=== PATIENT | female | born 1965 | race Hispanic/Latino ===

== ENCOUNTER 2018-01-28 06:25 | Day surgery (SDC) | payer OTHER ==
[2018-01-28] MEDS ORDERED: Ringers Lactate 1,000 ML IV ONE (06:44)
[2018-01-28] MEDS ORDERED: LIDOCAINE 1% W/EPI 1:100,000 MDV 50 ML VIAL ONE (07:21)
[2018-01-28] MEDS ORDERED: PROPOFOL 200 MG/20 ML VIAL IV ONE (07:21)
[2018-01-28] MEDS ORDERED: FENTANYL CITR 100 MCG/2 ML ONE ×2 (07:21→08:32)
[2018-01-28] MEDS ORDERED: TOBRADEX 0.3-0.1% OPTH OINTMENT ONE (07:21)
[2018-01-28] MEDS ORDERED: POVIDONE-IODINE 5% EYE DROPS ONE (07:21)
[2018-01-28] MEDS ORDERED: MIDAZOLAM HCL 2 MG/2 ML INJ ONE (07:21)
[2018-01-28] MEDS ORDERED: ONDANSETRON HCL 40 MG/20 ML VIAL ONE (07:22)
[2018-01-28] MEDS ORDERED: OPTHALMIC OPTH ONE (07:57)
[2018-01-28] MEDS ORDERED: MITOMYCIN OPTH ONE (07:57)
[2018-01-28] MEDS ORDERED: TISSEEL VH 2 MG KIT TOP ONE (07:57)
[2018-01-28] MEDS ORDERED: BSS OPTHALMIC SOL 15 ML BOT OPTH ONE (09:08)
[2018-01-28] MEDS: MORPHINE 4 MG/ML SYR ONE ×3 (09:54→10:01)
[2018-01-28] MEDS ORDERED: HYDROCODONE/APAP 5/325 MG TAB ONE (10:49)
--- NOTE | 2018-01-28 21:28 | OP ---
Date of Procedure: 01/28/2018 Surgeon: Chadwick Vivar MD [employer] Coordinator: None. Preoperative Diagnosis: Pterygium, right eye. Postoperative Diagnosis: Pterygium, right eye. Procedure Performed: Excision of nasal pterygium, right eye with placement of amniotic membrane graft after mitomycin-C. Description Of Procedure: After being properly identified in the preoperative holding, the patient was taken back to the operating room, where a time-out was performed. The patient was then prepped and draped in normal sterile fashion. Examination of the eye underneath the operating microscope revealed an extremely large nasal pterygium as well as a small temporal pterygium. The preoperative plan of removing the nasal pterygium only was carried out in the following fashion. Grasping the globe with a pair of 0.3 forceps. A muscle hook was placed underneath the head of the pterygium and used to dissect the head free. Then using a pair of Isaura scissors, the overlying conjunctiva was dissected free from the degenerated tenons nasally, which was removed first on the leading head and then further back extremely. Careful attention was used to isolate the medial rectus muscle with excellent visualization of the same pad and carried out throughout the entire procedure, as much of the pterygium as could be removed safely was. The pterygium had intertwined and grown underneath and encompassed the part of the medial rectus. This was cut free and loosened as best could be managed again with careful attention not to damage or remove any muscle. Once this had been performed, our attention was then turned back to the corneal head, which was removed in finding a plane with a 57 blade and removed in toto. The 57 blade was then used to scrape the episclera. Hemocautery was applied in order to achieve good hemostasis and then mitomycin-C, which had been obtained from [facility] was applied on the tip of a Weck-Rekha. This was held into place for 60 seconds. At which point, it was removed from the table and thorough irrigation using 3 bottles of normal BSS solution was used to irrigate the anterior surface. Amniotic membrane dry tissue measuring 1.5 x 2 mm was removed from its packaging and held over the defect and this just fitted with minor overlapping of the conjunctiva, desiccating the need to trim it to size. The Tisseel glue was applied through the supplied injector and then the amniotic membrane led into place. The Tisseel glue was noted under in order to create a flat surface and tucked underneath the conjunctiva with the conjunctiva then tucked and rolled in a "pie crust" fashion. Once this had been fully secured, the remainder of the Tisseel glue was applied both over the AMD and over the remaining cornea in order to provide a good seal. Once this had been allowed to dry, the drapes were carefully removed and the eye pressure patched and the procedure concluded. The patient was woken from general anesthesia and taken to the postoperative holding area in stable condition having tolerated the procedure well. There were no complications. Estimated Blood Loss: Less than 5 mL. ANTONELLA/CRYSTALL Voice ID: [id number] Report ID: [id number] DICTATED BUT NOT REVIEWED MTDD
== END 2018-01-28 11:20 | disposition home or self-care (01) ==
LOC: PRE 06:25 → OR 11:20
PROVIDERS: ATTEND Ophthalmology
PROC: 08B Eye, Excision (ICD-10-PCS; principal; 2018-01-28 07:30)
DX: H11.061 Recurrent pterygium of right eye (principal)
CPT/HCPCS: J2250; J2405; J3010; J7315; V2790

== ENCOUNTER 2023-03-16 22:45 | Emergency (ER) | payer BC ==
--- OUTSIDE RECORDS SUMMARY | 2023-03-16 22:48 | XMS REPORT | Continuity of Care Document ---
:1965 Author Organization [facility] t Address [address] [place] [address] Care Team Providers Name Role Phone PCP, PATIENT DOES NOT HAVE A Primary Care Physician Unavaila ble UNKNOWN, ATTENDING Attending Clinician Unavailable Provider, [facility] Attending Clinician Unavailable ENZO RAHMAN Attending Clinician Unavailable Only, Ang Db Test Attending Clinician Unavailable Unknown, Attending Attending Clinician Unavailable Doctor Unassigned, [place] Attending Clinician Unavailable Ricki ULLOA, Bernabe Charles Attending Clinician Unavailable TONY PATRICIA Attending Clinician Unavailable Payers Payer Name Policy Type Policy Number Effective Date Expiration Date S our [place] - [id number] 2022 00:00:00 OUT OF STATE AETNA [facility] CARE [id number] 2014 00:00:00 Problems Condition Condition Condition Status Onset Resolution Last Treating Co mments Source Name Details Category Date Date Treatment Clinician Date Gastroesop Gastroesop Disease Active U nivers hageal hageal 10-14 ity of reflux reflux 00:00: [place] disease disease 00 Medical without without Branch esophagiti esophagiti s s Contracept Contracept Disease Active U nivers ion ion 10-14 ity of 00:00: [place] 00 Medical Branch Edema Edema Disease Active Univers 10-14 ity of 00:00: [place] 00 Medical Branch Allergies, Adverse Reactions, Alerts Allergy Allergy Status Severity Reaction(s) Onset Inactive Treating Comm ents Source Name Type Date Date Clinician NO KNOWN Drug Active Univers ALLERGIE Class ity of S [facility] Branch Social History Social Habit Start Date Stop Date Quantity Comments Source Exposure to 2022-10-07 2022-10-17 Not sure [facility] SARS-CoV-2 00:00:00 09:03:00 [facility] (event) [place] Alcohol intake 2016-11-12 2016-11-12 0 /d University 00:00:00 00:00:00 [facility] Tobacco use and 2015-10-14 2015-10-14 Smokeless tobacco Un iversity of exposure 00:00:00 00:00:00 non-user [facility] Alcohol Comment 2015-10-14 2015-10-14 occasional Universit y of 00:00:00 00:00:00 [facility] Sex Ass[birth year] At [birth year] Universit y of 00:00:00 00:00:00 [facility] Smoking Status Start Date Stop Date Source Never smoked tobacco [facility] Medications Ordered Filled Start Stop Current Ordering Indication Dosage Frequency Signature Comments Components Source Medication Medication Date Date Medication? Clinician (SIG) Name Name norgestimat Yes [id number] 1{tbl} Take 1 Univers e-ethinyl 2-27 tablet by ity o f estradiol 00:00: mouth [place] (TRI-SPRINT 00 daily. Medica l EC) Branch 0.18/0.215/ 0.25 mg-35 mcg (28) tablet potassium Yes [id number] 10meq Take 1 Univers chloride 2-27 tablet by ity of (K-TAB) 10 00:00: mouth [place] mEq CR 00 daily. Medical tablet Branch norgestimat Yes [id number] 1{tbl} Take 1 Univers e-ethinyl 2-27 tablet by ity o f estradiol 00:00: mouth [place] (TRI-SPRINT 00 daily. Medica l EC) Branch 0.18/0.215/ 0.25 mg-35 mcg (28) tablet potassium Yes [id number] 10meq Take 1 Univers chloride 2-27 tablet by ity of (K-TAB) 10 00:00: mouth [place] mEq CR 00 daily. Medical tablet Branch norgestimat Yes [id number] 1{tbl} Take 1 Univers e-ethinyl 2-27 tablet by ity o f estradiol 00:00: mouth [place] (TRI-SPRINT 00 daily. Medica l EC) Branch 0.18/0.215/ 0.25 mg-35 mcg (28) tablet potassium Yes [id number] 10meq Take 1 Univers chloride 2-27 tablet by ity of (K-TAB) 10 00:00: mouth [place] mEq CR 00 daily. Medical tablet Branch norgestimat Yes [id number] 1{tbl} Take 1 Univers e-ethinyl 2-27 tablet by ity o f estradiol 00:00: mouth [place] (TRI-SPRINT 00 daily. Medica l EC) Branch 0.18/0.215/ 0.25 mg-35 mcg (28) tablet potassium Yes [id number] 10meq Take 1 Univers chloride 2-27 tablet by ity of (K-TAB) 10 00:00: mouth [place] mEq CR 00 daily. Medical tablet Branch pantoprazol Yes [id number] 40mg Take 1 Univers e 40 mg EC 2-17 tablet by ity of tablet 00:00: mouth [place] 00 daily. Medical Branch pantoprazol Yes [id number] 40mg Take 1 Univers e 40 mg EC 2-17 tablet by ity of tablet 00:00: mouth [place] 00 daily. Medical Branch pantoprazol Yes [id number] 40mg Take 1 Univers e 40 mg EC 2-17 tablet by ity of tablet 00:00: mouth [place] 00 daily. Medical Branch pantoprazol Yes [id number] 40mg Take 1 Univers e 40 mg EC 2-17 tablet by ity of tablet 00:00: mouth [place] 00 daily. Medical Branch Fluticasone 2015-09 Yes [id number] 1{puff} Inhale 1 Univers -Salmeterol 2-30 Puff every it y of (ADVAIR 00:00: 12 [place] DISKUS) 00 (twelve) Medical 100-50 hours. Branch mcg/dose inhalation disk Fluticasone 2015-09 Yes [id number] 1{puff} Inhale 1 Univers -Salmeterol 2-30 Puff every it y of (ADVAIR 00:00: 12 [place] DISKUS) 00 (twelve) Medical 100-50 hours. Branch mcg/dose inhalation disk Fluticasone 2015-09 Yes [id number] 1{puff} Inhale 1 Univers -Salmeterol 2-30 Puff every it y of (ADVAIR 00:00: 12 [place] DISKUS) 00 (twelve) Medical 100-50 hours. Branch mcg/dose inhalation disk Fluticasone 2015- Yes [id number] 1{puff} Inhale 1 Univers -Salmeterol 2-30 Puff every it y of (ADVAIR 00:00: 12 [place] DISKUS) 00 (twelve) Medical 100-50 hours. Branch mcg/dose inhalation disk furosemide 2015-09 Yes [id number] 80mg Take 1 Univers 80 mg 2-23 tablet by ity of tablet 00:00: mouth [place] 00 daily. [facility] furosemide 2015-09 Yes [id number] 80mg Take 1 Univers 80 mg 2-23 tablet by ity of tablet 00:00: mouth [place] 00 daily. [facility] furosemide 2015-09 Yes [id number] 80mg Take 1 Univers 80 mg 2-23 tablet by ity of tablet 00:00: mouth [place] 00 daily. [facility] furosemide 2015-09 Yes [id number] 80mg Take 1 Univers 80 mg 2-23 tablet by ity of tablet 00:00: mouth [place] 00 daily. [facility] Procedures Procedure Date / Time Performed Performing Clinician [facility] e CONSENT/REFUSAL FOR 2022-10-17 15:03:56 Doctor Unassigned, No Un [facility] DIAGNOSIS AND Name [facility] TREATMENT Encounters Start End Encounter Admission Attending Care Care Encounter Source Date/Time Date/Time Type Type Clinicians Facility Department ID 2022-10-20 2022-10-20 Outpatient R UNKNOWN, [facility] [id number] Univers 15:20:00 15:20:00 ATTENDING ity of [facility] 2022-10-20 2022-10-20 Letter Provider, [facility] [id number] Univers 00:00:00 00:00:00 (Out) Kenan Castillo HEALTH [id number] it y of Urgent Care [place] [id number] [place] KYRA?BLEA [phone] In jose PEREZ [address] [place] [address] MEDICAL OFFICE BUILDING 2022-10-17 2022-10-17 Outpatient R JOSIAH, [facility] [id number] Univers 09:15:00 11:30:25 ENZO ity of [facility] 2022-10-17 2022-10-17 Laboratory Only, Ang Db Test [facility] [id number] Univers 09:15:00 09:30:00 Only Unknown, Attending HEALTH [id number] ity of [facility] [id number] Gen as KYRA?BLEA [phone] In dical [address] MEDICAL OFFICE BUILDING 2022-10-17 2022-10-17 Orders Doctor FLETCHER [id number] Univers 00:00:00 00:00:00 Only Unassigned, JULIO CÉSAR [id number] ity of [place] [facility] [id number] Gen as [phone] [facility] 009 Branch 2022-10-17 2022-10-17 Letter FLETCHER Robison [id number] Univers 00:00:00 00:00:00 (Out) Bernabe ANGELA [id number] it y of [facility] [id number] Gen as [phone] [facility] 019 Branch 2017-11-13 2017-11-13 Outpatient TONY HORNE [facility] [id number] Univers 11:00:00 11:00:00 ity of [facility] Results This patient has no known results.
[2023-03-16] MEDS ORDERED: IBUPROFEN 400 MG TAB ONE (23:39)
[2023-03-16] MEDS ORDERED: IBUPROFEN 200 MG TAB PO ONE (23:39)
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
[2023-03-17 01:40] VITALS: TEMP 98.2; O2SAT 99
[2023-03-17 01:41] VITALS: BP 111/63
--- NOTE | 2023-03-17 21:40 | RAD REPORT ---
EXAM DESCRIPTION: CT - Head C Spine Cap Wo Con - 03/17/2023 6:47 am CLINICAL HISTORY: Neck injury, pelvic injury TECHNIQUE: Axial computed tomography images of the head/brain and cervical spine without intravenous contrast. Sagittal and coronal reformatted images were created and reviewed. This CT exam was pe rformed using one or more of the following dose reduction techniques: automated exposure control, a djustment of the mA and/or kV according to patient size, and/or use of iterative reconstruction techn ique. COMPARISON: Head CT dated 08/10/2020 FINDINGS: Brain: Unremarkable. No hemorrhage. No significant white matter disease. No edema. Ventricles: Unremarkable. No ventriculomegaly. Skull: No acute fracture. Sinuses: Unremarkable as visualized. No acute sinusitis. Mastoid air cells: Unremarkable as visualized. No mastoid effusion. Vertebrae: Unremarkable. No acute fracture. Normal alignment. Discs/spinal canal/neural foramina: Mild multilevel degenerative changes. 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 Soft tissues: Unremarkable. * A single impression for all exams can be found at the end of this report EXAM DESCRIPTION: CT Chest, Abdomen and Pelvis Without Intravenous Contrast CLINICAL HISTORY: Neck injury , pelvic injury TECHNIQUE: Axial computed tomography images of the chest, abdomen and pelvis without intravenous con trast. Sagittal and coronal reformatted images were created and reviewed. This CT exam was perfor med using one or more of the following dose reduction techniques: automated exposure control, adjus tment of the mA and/or kV according to patient size, and/or use of iterative reconstruction technique . COMPARISON: No relevant prior studies available. FINDINGS: CHEST: Lungs: Unremarkable. No mass. No consolidation. Pleural space: Unremarkable. No significant effusion. No pneumothorax. Heart: The heart is mildly enlarged. Coronary artery calcification. No significant pericardial effusion. Mediastinum: Small to moderate hiatal hernia. ABDOMEN: Liver: Unremarkable. Gallbladder and bile ducts: Unremarkable. No calcified stones. No ductal dilation. Pancreas: Unremarkable. No ductal dilation. Spleen: Unremarkable. No splenomegaly. Adrenals: Unremarkable. No mass. Kidneys and ureters: Small left renal calculus. No hydronephrosis. Stomach and bowel: Colonic diverticula without adjacent inflammatory change. No bowel obstruction . No appreciable mucosal thickening. PELVIS: Appendix: Normal caliber appendix. No findings to suggest acute appendicitis. Bladder: Unremarkable. No stones. Reproductive: Unremarkable as visualized. CHEST, ABDOMEN and PELVIS: Intraperitoneal space: Unremarkable. No significant fluid collection. No free air. Bones/joints: Multilevel spondylosis. No acute fracture. No dislocation. Soft tissues: Small fat-containing umbilical hernia. Vasculature: Mild atherosclerotic disease. Lymph nodes: Unremarkable. No enlarged lymph nodes. * A single impression for all exams can be found at the end of this report IMPRESSION: CT Head and Cervical Spine Without Intravenous Contrast: 1. No acute intracranial or extra-axial abnormality. 2. No acute cervical spine injury. CT Chest, Abdomen and Pelvis Without Intravenous Contrast: 1. No acute intrathoracic injury. 2. Allowing for unenhanced technique, no evidence for hollow or solid organ injury. 3. Other findings as above. Electronically signed by: Dipti Carolina MD 03/17/2023 12:57 AM CDT Due to temporary technical issues with the PACS/Fluency reporting system, reports are being signed by the in house radiologists without review as a courtesy to insure prompt reporting. The interpreting radiologist is fully responsible for the content of the report.
--- NOTE | 2023-03-17 21:43 | RAD REPORT ---
EXAM DESCRIPTION: RAD - Knee Right 3 View - 03/16/2023 11:41 pm CLINICAL HISTORY: R knee pain, injury TECHNIQUE: Three views of the right knee. COMPARISON: No relevant prior studies available. FINDINGS: Bones/joints: Mild to moderate degenerative changes at the medial and patellofemoral com partments. No acute fracture. No dislocation. Soft tissues: Unremarkable. IMPRESSION: No acute injury. Electronically signed by: Dipti Carolina MD 03/16/2023 11:54 PM CDT Due to temporary technical issues with the PACS/Fluency reporting system, reports are being signed by the in house radiologists without review as a courtesy to insure prompt reporting. The interpreting radiologist is fully responsible for the content of the report.
== END 2023-03-17 01:35 | disposition home or self-care (01) ==
LOC: ER 22:45
DX: S13.9XXA Sprain of joints and ligaments of unspecified parts of neck, initial encounter (principal); S80.01XA Contusion of right knee, initial encounter; G44.209 Tension-type headache, unspecified, not intractable; M54.9 Dorsalgia, unspecified; M53.3 Sacrococcygeal disorders, not elsewhere classified; V53.5XXA Driver of pick-up truck or van injured in collision with car, pick-up truck or van in traffic accident, initial encounter; E11.9 Type 2 diabetes mellitus without complications
CPT/HCPCS: 70450; 71250; 72125; 82947; 99283